=== PATIENT | male | born 1950 | race Caucasian/White ===

== ENCOUNTER 2018-09-25 13:19 | Emergency (ER) | payer MEDICARE, MEDICAID ==
[~2018-09-25] VITALS: Ht 190.5 cm; Wt 115.0 kg
[2018-09-25] MEDS ORDERED: ALBU18HF INH (16:00)
[2018-09-25] MEDS ORDERED: AMLO10TA6 PO (16:00)
[2018-09-25] MEDS ORDERED: DOXA1TAB2 PO (16:00)
[2018-09-25 21:15] VITALS: BP 127/62
== END 2018-09-25 21:41 | disposition home or self-care (01) ==
LOC: ED 13:50
DX: F10.120 Alcohol abuse with intoxication, uncomplicated (principal)
CPT/HCPCS: 36415; 80307; 93005; 99284